=== PATIENT | female | born 1965 | race Caucasian/White ===

== ENCOUNTER 2020-01-19 10:40 | Inpatient (IN) | payer BC ==
[2020-01-19 11:39] LABS: Bilirubin Negative (Negative); Blood, Urine Negative (Negative); Clarity Turbid (Clear); Glucose, Urine (Dipstick) Normal (Negative); Leukocyte Negative Leu/uL (Negative); Nitrite Negative (Negative); Protein, Urine (Dipstick) 20 mg/dL (Neg-Trace); Urobilinogen Normal mg/dL (Less than 2)
[2020-01-19] MEDS ORDERED: Ondansetron PF 4 MG/2 ML Vial IVP PRN (12:00)
[2020-01-19] MEDS ORDERED: Morphine 4 MG/ML VIAL SLOW IVP PRN (12:00)
[2020-01-19] MEDS ORDERED: Morphine 4 MG/ML VIAL ONE (12:13)
[2020-01-19] MEDS ORDERED: Ondansetron ODT 4 MG TAB ONE (12:15)
[2020-01-19] MEDS ORDERED: Dexamethasone 4 mg/ml Vial ONE (12:16)
[2020-01-19 12:49] LABS: #Basophils 0.1 thou/uL (0.0-0.2); #Eosinphils 0.1 thou/uL (0.0-0.7); #Lymphocytes 1.8 thou/uL (1.20-3.40); #Monocytes 0.6 thou/uL (0.11-0.59); #Neutrophils 5.1 thou/uL (1.40-6.50); %Basophils 0.8 % (0.0-1.0); %Eosinophils 1.2 % (0.0-10.0); %Monocytes 8.3 % (0.0-10.0); %Neutrophils 66.8 % (42.0-75.0); Hemoglobin 13.5 g/dL (12.0-16.0); Mean Corpuscular Hemoglobin 33.5 pg (27.0-31.0); Mean Platelet Volume 6.7 fL (7.4-10.4); Platelet Count 231 thou/uL (130-400); RBC Distribution Width 11.5 % (11.5-14.5); Red Blood Cell (RBC) Count 4.03 mill/uL (4.20-5.40); White Blood Cell (WBC) Count 7.6 thou/uL (4.8-10.8)
[2020-01-19 13:29] LABS: ALT (SGPT) 11 U/L (8-55); AST (SGOT) 14 U/L (5-34); Alkaline Phosphatase 33 U/L (40-110); Anion Gap 12 mmol/L (10-20); BUN (Urea Nitrogen) 19 mg/dL (9.8-20.1); Bilirubin, Total 1.5 mg/dL (0.2-1.2); Calc. Creatinine Clearance 0 mL/min (70-130); Calcium 9.1 mg/dL (7.8-10.44); Carbon Dioxide 25 mmol/L (22-29); Chloride 103 mmol/L (98-107); Estimated GFR-MDRD 79; Globulin 2.4 g/dL (2.4-3.5); Glucose 89 mg/dL (70-105); Potassium 3.9 mmol/L (3.5-5.1); Protein, Total 6.4 g/dL (6.0-8.3); Sodium 136 mmol/L (136-145)
[2020-01-19] MEDS ORDERED: traMADol HCl 50 MG TAB PO PRN (15:36)
[2020-01-19] MEDS: Sodium Chloride 0.9% 1,000 ML IV SCH ×2 (15:37→22:14)
[2020-01-19] MEDS: HYDROcodone/Acetaminophen 5/325 mg Tablet PO PRN ×2 (17:28→20:53)
[2020-01-19] MEDS: tiZANidine HCl 4 MG TAB PO PRN (17:28)
[2020-01-19 17:44] VITALS: BMI 23.6
[2020-01-19] MEDS ORDERED: Acetaminophen 325 MG TAB PO PRN (18:11)
[2020-01-19] MEDS: Morphine 2 MG/ML SYRINGE SLOW IVP PRN ×3 (18:54→22:48)
[2020-01-19] MEDS: Docusate 100 MG CAP PO SCH (20:53)
[2020-01-19] MEDS ORDERED: hydrOXYzine 25 MG TAB PO SCH (22:00)
[2020-01-20] MEDS: tiZANidine HCl 4 MG TAB PO PRN ×3 (00:52→23:53)
[2020-01-20] MEDS: Morphine 2 MG/ML SYRINGE SLOW IVP PRN ×6 (00:52→17:07)
[2020-01-20] MEDS: HYDROcodone/Acetaminophen 5/325 mg Tablet PO PRN ×2 (00:52→04:41)
--- NOTE | 2020-01-20 01:30 | HP ---
CHIEF COMPLAINT: Right leg pain, leg giving out when walking. HISTORY OF PRESENT ILLNESS: Mrs. Fontenot is a pleasant 54-year-old female, who presented to the emergency department earlier today for complaints of severe right leg pain and leg giving out when walking. She reports pain from her right hip radiating down her right leg since July 2019, but has experienced significant worsening over the last week. She localizes pain to her right hip, lateral thigh, and lateral and posterior calf. She denies any left leg pain or symptoms. She denies significant low back pain, stating the pain is primarily in her right lower extremity. She does report some associated numbness and tingling in her right foot. She states that over the last week, the pain has become excruciating and she is unable to walk due to pain as well as reports that her leg has started giving out. She denies any associated falls. She denies any bowel or bladder incontinence. No prior history of lumbar spinal surgery. The patient had recently seen Dr. Powers with Pain Management; however, she has not yet received any epidural steroid injections at this time. She has undergone recent physical therapy with minimal of improvement. PAST MEDICAL HISTORY: Reportedly negative per patient. She denies any history of hypertension, hyperlipidemia, diabetes mellitus, myocardial infarction, cerebrovascular accident, or cancers. Overall, she states that she is very healthy. PAST SURGICAL HISTORY: Partial hysterectomy, breast lift, and blepharoplasty. SOCIAL HISTORY: Current smoker, half pack every two days. The patient is . ALLERGIES: NO KNOWN DRUG ALLERGIES. MEDICATIONS: Lunesta hs prn, [place] 10/325. Otherwise denies home medications she takes regularly. No aspirin or anticoagulants. REVIEW OF SYSTEMS: Positive for right hip pain, right leg pain, right foot paresthesias, right leg weakness, gait disturbance. Review of systems otherwise negative. PHYSICAL EXAMINATION: The patient is awake, alert, and appropriate. Cranial nerves 2 through 12 are grossly intact. No midline cervical, thoracic, or lumbar spinal tenderness to palpation. No sacroiliac joint tenderness to palpation bilaterally. Good range of motion and 5/5 strength throughout upper extremities bilaterally. Range of motion of her right leg is somewhat limited secondary to pain; however, she overall has good movement of her bilateral lower extremities. She has 5/5 strength throughout her lower extremity myotomes bilaterally. Subjective decreased sensation in her right lateral calf compared to the contralateral side , otherwise sensation to light touch is intact and equal in upper extremities. Gait was not assessed. IMPRESSION/DIAGNOSES: 1. Right lower extremity pain and gait disturbance. 2. Lumbar stenosis. 3. Lumbar radiculopathy. 4. Lumbar herniated nucleus pulposus. 5. Tobacco use, cigarettes. PLAN: This case was discussed and imaging reviewed with Dr. Navarro. Review of recent lumbar MRI completed at the [facility] shows right lateral recess stenosis at L3-L4, bilateral lateral recess stenosis at L4-L5 with disk bulge causing paracentral and right foraminal stenosis. Given the patient's significant increase in symptoms with her right leg beginning to give out, the patient requires an operation on an urgent basis to prevent further neurologic decline. This case is not considered elective and cannot wait 30 days to be performed. Surgery here will be a right L3-L4 hemilaminotomy and foraminotomy, as well as L4-L5 laminectomy, partial facetectomies, and foraminotomies with right L4-L5 standard and a trans-facet diskectomies. We will take the patient to the OR tomorrow morning for surgery. Appropriate pain medications have been ordered. N.p.o. at midnight. This plan was discussed with both the patient, as well as her via phone. Risks versus benefits of surgery were discussed and all questions answered. The patient wishes to proceed with surgery tomorrow as discussed. We will see the patient in the morning. Call for any neurologic changes or other concerns. This was a 50 minute initial evaluation, in which greater than 50% of the time was spent in review of records, imaging, evaluation, examination of the patient, and formulation of plan. The remaining time was spent in counseling and coordination of care. Job ID: [id number] [facility]
[2020-01-20] MEDS ORDERED: Fentanyl 100 MCG/2 ML VIAL ONE ×3 (06:12→11:05)
[2020-01-20] MEDS ORDERED: Midazolam HCl 2 mg/2 ml Vial ONE ×2 (06:12→07:24)
[2020-01-20] MEDS ORDERED: Lidocaine 2% Jelly 5 ML TUBE ONE (06:13)
[2020-01-20] MEDS ORDERED: HYDROmorphone 0.5 MG/0.5 ML SYRINGE ONE ×2 (06:13→09:26)
[2020-01-20] MEDS ORDERED: Thrombin 5000 UNITS/5 ML VIAL ONE (06:34)
[2020-01-20] MEDS: Docusate 100 MG CAP PO SCH ×2 (07:32→20:04)
--- NOTE | 2020-01-20 10:11 | PRG ---
DATE OF SERVICE: 01/20/2020 SUBJECTIVE: Ms. Fontenot is a very pleasant 54-year-old woman, who has been to the emergency room at least a couple of times for low back and intractable right leg pain. MRI demonstrates right L4 lateral recess stenosis at the L3-L4 segment with severe L4-L5 stenosis and a caudally migrated disk extrusion at L4-L5 compressing the traversing right L5 nerve root and a foraminal disk extrusion compressing the exiting right L4 nerve root. I strongly suspect this is the culprit of her symptoms and she has had difficulty walking. She also has reported weakness. I recommended admission and urgent procession to the operating room to reduce pain and prevent further neurologic deficit and our team discussed the informed consent with the patient and her of right L3-L4 hemilaminotomy and foraminotomy with L4-L5 and laminectomy partial facetectomy and paracentral diskectomy with right L4-L5 trans-facet approach for diskectomy for lateral extrusion and use of operative microscope. They understand the goals, indications, alternatives, and complications of surgery as discussed in its entirety up to and including, but not limited to, wound healing issues such as infection, bleeding, CSF leak, temporary prior neurologic deficit, medical complications, and the need for more surgery. They understand all these risks and in particular the risk of Sousa virus and the current medical state. They also understand that it is my recommendation that this be dealt with emergently to prevent the aforementioned low back and right leg pain with right leg weakness with lumbar stenosis and lumbar disk extrusion. Job ID: [id number] [facility]
[2020-01-20] MEDS ORDERED: Bisacodyl 10 MG SUPP PR PRN (10:29)
[2020-01-20] MEDS ORDERED: Mag-Al 1200 mg/1200 mg/30 ML UDCUP PO PRN (10:29)
[2020-01-20] MEDS ORDERED: Fleet Enema 133 ML BOT PR PRN (10:29)
[2020-01-20] MEDS ORDERED: Milk Of Magnesia 30 ML UDCUP PO PRN (10:29)
[2020-01-20] MEDS ORDERED: Ondansetron HCl/PF 4 MG/2 ML Vial IVP PRN (10:47)
[2020-01-20] MEDS ORDERED: HYDROmorphone 2 MG/ML VIAL SLOW IVP PRN (10:47)
[2020-01-20] MEDS ORDERED: Promethazine HCl 25 MG/ML VIAL SLOW IVP PRN (10:47)
[2020-01-20] MEDS ORDERED: Promethazine HCl 25 MG/ML VIAL IM PRN (10:47)
--- NOTE | 2020-01-20 11:16 | OP ---
DATE OF PROCEDURE: 01/20/2020 LOCATION: OR 11. WOUND CLASSIFICATION: Type 1 wound. RESEARCH ASSISTANT: Namita Parr PA-C A Modifier 57 should be added to this surgery as the decision to operate was made on the day I saw the patient. PREPROCEDURE DIAGNOSES: Low back and right leg pain with right L4 and right L5 radiculopathy, bilateral lumbar stenosis resulting in low back, leg pain, weakness, difficulty walking. POSTPROCEDURE DIAGNOSES: Low back and right leg pain with right L4 and right L5 radiculopathy, bilateral lumbar stenosis resulting in low back, leg pain, weakness, difficulty walking. PROCEDURES PERFORMED: 1. Right L3-L4 hemilaminotomy, foraminotomy. 2. L4-L5 laminectomy, partial facetectomy, and bilateral foraminotomy with L4-L5 diskectomy, right-sided. 3. Use of operative microscope for microdissection. 4. Right L4-L5 transfacet approach for lateral diskectomy. DESCRIPTION OF PROCEDURE: After informed consent was obtained from the patient, the patient was brought to the OR. Proper patient, pause, and identification were carried out. She was placed under excellent endotracheal anesthesia and positioned prone on the OR table. All appropriate points were padded. We identified the L3 through L5 dorsal spines and lamina. A linear prudence was made over this region. This area was sterilely cleansed, prepared, and draped. Proper patient, pause, and identification were carried out. The wound was then opened with a combination of sharp, monopolar, and blunt dissection. We exposed the right L3-L4, bilateral L4, and bilateral L5 spinous process and lamina. Localization film confirmed area of interest. We then performed a right L3-L4 hemilaminotomy and foraminotomy. We then performed L4-L5 laminectomy, partial facetectomy, and foraminotomies. We brought the microscope in and working over the shoulder of the traversing right L5 nerve root, we identified a caudally migrated disk extrusion and removed the fragments to assure excellent freedom of the traversing right L5 nerve root. We then turned our attention to the transfacet approach at the right L4-L5 to remove disk in the foramen off the right L4 nerve root. This was performed. We were careful to preserve the pars at this segment, but through the transfacet approach, we were able to identify foraminal disk extrusion that was compressing the exiting right L4 nerve root. This was removed. Copious irrigation occurred throughout as did maximizing hemostasis. The wound was then closed in anatomic layers following sprinkling of vancomycin powder. The patient then emerged from anesthesia. There was no spinal fluid leak. Job ID: [id number]
[2020-01-20] MEDS ORDERED: PHENYLEPHRINE-NS 100 MCG/ML 10 ML SYRINGE ONE (12:32)
[2020-01-20] MEDS ORDERED: Glycopyrrolate 0.2 MG/ML 5 ML SYRINGE ONE (12:32)
[2020-01-20] MEDS ORDERED: Rocuronium Bromide 10 MG/ML (10ML VIAL) ONE (12:32)
[2020-01-20] MEDS ORDERED: Lidocaine 1% PF 5 ML VIAL ONE (12:32)
[2020-01-20] MEDS ORDERED: Dexamethasone 20 MG/5 ML VIAL ONE (12:32)
[2020-01-20] MEDS ORDERED: PROPOFOL 200 MG/20 ML VIAL ONE (12:32)
[2020-01-20] MEDS ORDERED: Ondansetron PF 4 MG/2 ML Vial ONE ×2 (12:32)
[2020-01-20] MEDS: Acetaminophen/Codeine 30-300mg Tablet PO PRN ×3 (12:57→23:53)
[2020-01-20] MEDS: Sodium Chloride 0.9% 1,000 ML IV SCH (12:57)
[2020-01-20] MEDS: CEFAZOLIN 2 GM in Premix Bag 1 BAG IVPB SCH ×2 (16:04→23:52)
[2020-01-20] MEDS ORDERED: Zolpidem Tartrate 5 MG TAB PO PRN (17:21)
[2020-01-21] MEDS: Sodium Chloride 0.9% 1,000 ML IV SCH (04:23)
[2020-01-21] MEDS: Morphine 2 MG/ML SYRINGE SLOW IVP PRN (04:31)
[2020-01-21 07:23] VITALS: BP 136/80; TEMP 98
[2020-01-21] MEDS: tiZANidine HCl 4 MG TAB PO PRN (07:49)
[2020-01-21] MEDS: Acetaminophen/Codeine 30-300mg Tablet PO PRN (07:50)
[2020-01-21] MEDS: Docusate 100 MG CAP PO SCH (07:53)
[2020-01-21] MEDS ORDERED: HYDROcodone/Acetaminophen 5/325 mg Tablet PO PRN (08:27)
--- NOTE | 2020-01-21 09:46 | PRG ---
DATE OF SERVICE: 01/21/2020 Ms. Fontenot is postoperative day #1 following lumbar diskectomy for acute worsening of low back, leg pain, and declining gait. States the leg pain is resolved and her strength is improved, and she is doing very well. We went over do's and don'ts in the postoperative period. She will be dismissed today. Job ID: [id number] [facility]
== END 2020-01-21 10:00 | disposition home or self-care (01) | DRG 520 ==
LOC: ERS 10:40 → SURG A 15:30
PROVIDERS: ADMIT Emergency Medicine; ATTEND Emergency Medicine
PROC: 0SB20ZZ Excision of Lumbar Vertebral Disc, Open Approach (ICD-10-PCS; principal; 2020-01-19)
PROC: 01NB0ZZ Release Lumbar Nerve, Open Approach (ICD-10-PCS; 2020-01-19)
DX: M48.061 Spinal stenosis, lumbar region without neurogenic claudication (principal); F17.210 Nicotine dependence, cigarettes, uncomplicated; M51.16 Intervertebral disc disorders with radiculopathy, lumbar region; Z90.711 Acquired absence of uterus with remaining cervical stump; Z79.899 Other long term (current) drug therapy
CPT/HCPCS: 76000; 80053; 81003; 85025; 96372; 99284; J0690; J1100; J1170; J2001; J2250; J2270; J2405; J2704; J3010; J3370; Q0162